=== PATIENT | female | born 1955 | race Caucasian/White ===

== ENCOUNTER → 2016-11-10 | Outpatient (CLI) | payer OTHER | LOC: FIMAGING 09:20 | DX: Z12.31 Encounter for screening mammogram for malignant neoplasm of breast (principal); Z80.3 Family history of malignant neoplasm of breast | CPT/HCPCS: G0202 ==

== ENCOUNTER → 2016-11-19 | Outpatient (CLI) | payer OTHER | LOC: FIMAGING 08:43 | PROVIDERS: ATTEND Obstetrics & Gynecology | DX: Z12.39 Encounter for other screening for malignant neoplasm of breast (principal); R92.2 Inconclusive mammogram ==

== ENCOUNTER → 2017-07-21 | Outpatient (CLI) | payer OTHER | LOC: FIMAGING 10:01 | DX: Z12.39 Encounter for other screening for malignant neoplasm of breast (principal) | CPT/HCPCS: G0206 ==

== ENCOUNTER → 2017-11-30 | Outpatient (CLI) | payer OTHER | LOC: FIMAGING 12:30 | PROVIDERS: ATTEND Family Medicine | DX: Z12.31 Encounter for screening mammogram for malignant neoplasm of breast (principal); Z80.3 Family history of malignant neoplasm of breast ==

== ENCOUNTER 2017-12-30 02:55 | Emergency (ER) | payer OTHER ==
--- NOTE | 2017-12-30 03:04 | CPEKG ---
Heart Rate: 109 RR Interval: 550 P-R Interval: 180 QRSD Interval: 92 QT Interval: 348 QTC Interval: 469 P [place]: 73 QRS [place]: -1 T Wave [place]: 34 EKG Severity - BORDERLINE ECG - EKG Impression: SINUS TACHYCARDIA EKG Impression: BORDERLINE R WAVE PROGRESSION, ANTERIOR LEADS Electronically Signed By: Isael Lozano 30-Dec-2017 06:29:21
[2017-12-30] MEDS ORDERED: methylPREDNISolone SOD SUCC 125 MG/2 ML VIAL IVP ONE (03:05)
[2017-12-30] MEDS ORDERED: FAMOTIDINE 20 MG/2 ML SDV IVP ONE (03:05)
--- NOTE | 2017-12-30 03:17 | EDPHY ---
H & P Stated Complaint: woke up feeling like evaristo was having an allergic reaction Time Seen by Provider: 12/30/17 02:59 HPI/ROS: Chief Complaint: Heart palpitations, dry mouth HPI: 62-year-old woman woke this morning with the sensation that her heart was racing, had dry mouth, some difficulty swallowing. Patient states that felt somewhat similar to when she had allergic reaction to over 100+ bee stings many years ago. Patient states that she had a physical yesterday and received the shingles vaccination at that time. This was a 2nd in her shingles vaccination series. Denied any throat swelling. No chest pain. No shortness of breath. She did administer her EpiPen. Patient states that the dry mouth sensation has improved however she is still feeling like her heart is pounding. No recent illness. No fevers or chills. No nausea or vomiting. ROS: 10 point Review of Systems is negative except as noted in the HPI. PMH: Hypothyroidism, bee sting allergy Social History: No smoking, no alcohol, no recreational drug use Family History: non-contributory Physical Exam: Gen: Awake, Alert, No Distress HEENT: Nose: no rhinorrhea Eyes: PERRLA, EOMI Mouth: Moist mucosa Neck: Supple, no JVD Chest: nontender, lungs clear to auscultation Heart: S1, S2 normal, no murmur Abd: Soft, non-tender, no guarding Back: no CVA tenderness, no midline tenderness Ext: no edema, non-tender Skin: no rash Neuro: CN II-XII intact, Sensation grossly intact, Strength 5/5 in bilateral upper and lower extremities - Personal History Current Tetanus/Diphtheria Vaccine: Yes Current Tetanus Diphtheria and Acellular Pertussis (TDAP): Yes - Medical/Surgical History Hx Asthma: No Hx Chronic Respiratory Disease: No Hx Diabetes: No Hx Cardiac Disease: No Hx Renal Disease: No Hx Cirrhosis: No Hx Alcoholism: No Hx HIV/AIDS: No Hx Splenectomy or Spleen Trauma: No Other PMH: hypothyroid - Social History Smoking Status: Never smoked Constitutional: Initial Vital Signs Temperature (C) 36.7 C 12/30/17 02:59 Heart Rate 112 H 12/30/17 02:59 Respiratory Rate 18 12/30/17 02:59 Blood Pressure 177/114 H 12/30/17 02:59 O2 Sat (%) 99 12/30/17 02:59 O2 Delivery Mode Room Air Allergies/Adverse Reactions: bee venom protein (honey bee) Allergy (Verified 12/30/17 02:59) Home Medications: Medication Instructions Recorded Levothyroxine 12/30/17 predniSONE 60 mg PO DAILY #9 tab 12/30/17 Medical Decision Making - Diagnostics EKG Interpretation: ECG time 3:02 a.m., sinus tachycardia with a rate of 109, normal axis, normal intervals, no acute ST or T-wave changes. ED Course/Re-evaluation: 62-year-old woman presenting with symptoms that were similar to a prior allergic reaction. She administered an EpiPen. She did not have any chest pain. Not having shortness of breath. Primarily had very dry mouth and some lightheadedness and palpitations. ECG after epinephrine shows a sinus tachycardia without any ischemic changes. She is had improvement in her symptoms. She has been given Benadryl, Solu-Medrol and Pepcid here. She has been observed in the emergency depart for 2 hr without any recurrence of symptoms. Plan will be to discharge her with continuing Benadryl and prednisone. She will follow up with primary care physician for any further concerns. She does not have risk factors for coronary artery disease. Did not have any chest pain. Did not have any diaphoresis. Did not have any shortness of breath or any other anginal equivalents. Patient is improved. She is no longer tachycardic. Feeling better. Will discharge with outpatient follow-up - Data Points Laboratory Results: Laboratory Results 12/30/17 03:25 12/30/17 03:25 12/30/17 12/30/17 03:25 03:25 WBC 12.55 10^3/uL H 10^3/uL (3.80-9.50) RBC 4.30 10^6/uL 10^6/uL (4.18-5.33) Hgb 13.0 g/dL g/dL (12.6-16.3) Hct 38.1 % % (38.0-47.0) MCV 88.6 fL fL (81.5-99.8) MCH 30.2 pg pg (27.9-34.1) MCHC 34.1 g/dL g/dL (32.4-36.7) RDW 12.9 % % (11.5-15.2) Plt Count 260 10^3/uL 10^3/uL (150-400) MPV 10.1 fL fL (8.7-11.7) Neut % (Auto) 80.0 % H % (39.3-74.2) Lymph % (Auto) 11.1 % L % (15.0-45.0) [place] % (Auto) 7.2 % % (4.5-13.0) Eos % (Auto) 0.9 % % (0.6-7.6) Baso % (Auto) 0.6 % % (0.3-1.7) Nucleat RBC Rel Count 0.0 % % (0.0-0.2) Absolute Neuts (auto) 10.06 10^3/uL H 10^3/uL (1.70-6.50) Absolute Lymphs (auto) 1.39 10^3/uL 10^3/uL (1.00-3.00) Absolute Monos (auto) 0.90 10^3/uL H 10^3/uL (0.30-0.80) Absolute Eos (auto) 0.11 10^3/uL 10^3/uL (0.03-0.40) Absolute Basos (auto) 0.07 10^3/uL 10^3/uL (0.02-0.10) Absolute Nucleated RBC 0.00 10^3/uL 10^3/uL (0-0.01) Immature Gran % 0.2 % % (0.0-1.1) Immature Gran # 0.02 10^3/uL 10^3/uL (0.00-0.10) Sodium 141 mEq/L mEq/L (135-145) Potassium 3.7 mEq/L mEq/L (3.5-5.2) Chloride 103 mEq/L mEq/L (97-110) Carbon Dioxide 23 mEq/l mEq/l (22-31) Anion Gap 15 mEq/L mEq/L (8-16) BUN 23 mg/dL mg/dL (7-23) Creatinine 0.7 mg/dL mg/dL (0.6-1.0) Estimated GFR > 60 Glucose 102 mg/dL H mg/dL (70-100) Calcium 9.3 mg/dL mg/dL (8.5-10.4) Troponin I < 0.012 ng/mL ng/mL (0.000-0.034) Medications Given: Discontinued Medications Diphenhydramine HCl (Benadryl Injection) 50 mg IVP EDNOW ONE Stop: 12/30/17 03:06 Last Admin: 12/30/17 03:17 Dose: 50 mg Famotidine (Pepcid) 20 mg IVP EDNOW ONE Stop: 12/30/17 03:06 Last Admin: 12/30/17 03:25 Dose: 20 mg Sodium Chloride (Ns) 1,000 mls @ 0 mls/hr IV ONCE ONE PRN Reason: Wide Open Stop: 12/30/17 03:19 Last Admin: 12/30/17 03:18 Dose: 1,000 mls Methylprednisolone Sodium Succinate (Solu-Medrol) 125 mg IVP EDNOW ONE Stop: 12/30/17 03:06 Last Admin: 12/30/17 03:20 Dose: 125 mg Departure - Departure Disposition: Home, Routine, Self-Care Clinical Impression: Allergic reaction Condition: Good Instructions: General Allergic Reaction (ED) Additional Instructions: Continue taking Benadryl, 50 mg, every 4-6 hr for the next 24 hr. Complete a 3 day course of prednisone. Follow up with primary care doctor in 2-3 days for further evaluation. Return to the emergency department for worsening palpitations, chest pain, difficulty breathing, fevers, chills, or any other concerns. Referrals: Rudi Castro DO [Primary Care Provider] - As per Instructions Prescriptions: predniSONE 60 mg PO DAILY #9 tab
[2017-12-30] MEDS ORDERED: NS 1,000 ML IV ONE (03:18)
[2017-12-30 03:34] LABS: PLATELET COUNT 260 10^3/uL (150-400)
[2017-12-30 05:11] VITALS: BP 132/90
== END 2017-12-30 05:11 | disposition home or self-care (01) ==
DX: R00.2 Palpitations (principal); T44.5X5A Adverse effect of predominantly beta-adrenoreceptor agonists, initial encounter
CPT/HCPCS: 96374; J1200; J2930

== ENCOUNTER → 2018-12-04 | Outpatient (CLI) | payer OTHER | LOC: FIMAGING 09:07 | PROVIDERS: ATTEND Obstetrics & Gynecology | DX: Z12.31 Encounter for screening mammogram for malignant neoplasm of breast (principal); Z80.3 Family history of malignant neoplasm of breast ==